=== PATIENT | male | born 1995 | race Caucasian/White ===

== ENCOUNTER → 2016-08-29 | Emergency (ER) | payer OTHER ==
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
[2016-08-29 19:08] VITALS: BP 96/44; PULSE 105; TEMP 100.6; BMI 33.5
== END | disposition home or self-care (01) ==
LOC: JER 18:48
DX: F19.90 Other psychoactive substance use, unspecified, uncomplicated (principal); F84.0 Autistic disorder; F31.9 Bipolar disorder, unspecified; Z59.0 Homelessness; E11.9 Type 2 diabetes mellitus without complications; F17.210 Nicotine dependence, cigarettes, uncomplicated
CPT/HCPCS: 71020-TC; 99281-25; 99282-25